=== PATIENT | male | born 1990 | race Hispanic/Latino ===

== ENCOUNTER 2018-02-04 12:43 | Emergency (ER) | payer SELFPAY ==
[~2018-02-04] VITALS: Ht 172.7 cm; Wt 94.8 kg
[2018-02-04] MEDS ORDERED: TRAMADOL HCL 50 MG TAB PO ONE (13:30)
[2018-02-04] MEDS ORDERED: TETANUS/DIPHTHERIA TOX ADULT 0.5 ML SYR IM ONE (13:30)
[2018-02-04 13:44] VITALS: BP 140/89
== END 2018-02-04 13:59 | disposition home or self-care (01) ==
LOC: FSED 12:43
DX: S91.114A Laceration without foreign body of right lesser toe(s) without damage to nail, initial encounter (principal); W45.8XXA Other foreign body or object entering through skin, initial encounter; Y92.008 Other place in unspecified non-institutional (private) residence as the place of occurrence of the external cause; I10 Essential (primary) hypertension; F17.210 Nicotine dependence, cigarettes, uncomplicated
CPT/HCPCS: 90471; 90714; 99283